=== PATIENT | male | born 1990 | race Caucasian/White ===

== ENCOUNTER 2020-07-23 15:22 | Outpatient (REF) | payer OTHER, SELFPAY ==
[2020-07-23 16:33] LABS: Basophils Percent Auto 0.3 % (0-2); Eosinophils Absolute Auto 0.1 X10*3/uL (0.0-0.4); Eosinophils Percent Auto 0.7 % (0-4); Hematocrit 44.5 % (42-52); Hemoglobin 15.3 g/dl (14.0-18.0); Imm Gran Abs Auto 0.03 X10*3/uL (0.00-0.03); Imm Gran Pct Auto 0.4 % (0.0-0.4); Lymphocytes Absolute Auto 4.5 X10*3/uL (1.2-4.9); MANUAL DIFF FLAG SCAN; Mean Corpuscular HGB Conc 34.4 g/dl (31.0-36.0); Mean Corpuscular Hemoglobin 31.3 pg (27.0-33.0); Mean Platelet Volume 10.4 fL (9.4-12.4); Monocytes Absolute Auto 0.6 X10*3/uL (0.1-1.2); Monocytes Percent Auto 7.9 % (2-11); Neutrophils Percent Auto 27.7 % (45-73); Platelet Count 156 X10*3/uL (160-400); Red Blood Count 4.89 X10*6/uL (4.60-5.80); Red Cell Distribution Width 12.6 % (11.0-16.0); SCAN SMEAR FLAG 1; White Blood Count 7.1 X10*3/uL (4.8-10.8)
[2020-07-23 17:00] LABS: SLIDE REVIEW VERIFIED
[2020-07-23 17:19] LABS: Erythrocyte Sedimentation Rate 2 MM/HR (0-15)
== END 2020-07-23 15:23 | disposition home or self-care (01) ==
LOC: HO.LAB 15:22
PROVIDERS: Visit Provider Otolaryngology
DX: R22.1 Localized swelling, mass and lump, neck (principal)
CPT/HCPCS: 36415; 85025; 85652